=== PATIENT | male | born 1965 | race Caucasian/White ===

== ENCOUNTER 2017-07-22 11:06 | Emergency (ER) | payer SELFPAY ==
[2017-07-22 11:42] VITALS: RESP 18; TEMP 98.3; O2SAT 99
--- NOTE | 2017-07-22 12:52 | ED PDOC ---
Arrival/HPI - General Chief Complaint: ENT Problem Time Seen by Provider: 07/22/17 12:17 Historian: Patient - History of Present Illness Narrative History of Present Illness (Text): 07/22/17 12:17 Robert Hobson is a 52 year old male who presents to the emergency department complaining of 4 day duration of left ear pain. Patient notes decreased hearing in his left ear. Patient states that he has not taken any medication for pain but has applied a cream from [place] in ear without improvement. Patient denies any chest pain, shortness of breath, sick person contact, fevers, chills, or any other complaints at this time. Time/Duration: < week Symptom Onset: Gradual Symptom Course: Unchanged Context: Home Past Medical History - Provider Review Nursing Documentation Reviewed: Yes - Travel History If Yes, travel location?: [place] - Infectious Disease Hx of Infectious Diseases: None - Cardiac Hx Cardiac Disorders: Yes Hx Hypertension: Yes - Pulmonary Hx Respiratory Disorders: No - Neurological Hx Neurological Disorder: No - HEENT Hx HEENT Disorder: No - Renal Hx Renal Disorder: No - Endocrine/Metabolic Hx Endocrine Disorders: No - Hematological/Oncological Hx Blood Disorders: No - Integumentary Hx Dermatological Disorder: No - Musculoskeletal/Rheumatological Hx Musculoskeletal Disorders: No - Gastrointestinal Hx Gastrointestinal Disorders: No - Genitourinary/Gynecological Hx Genitourinary Disorders: No - Psychiatric Hx Psychophysiologic Disorder: No Hx Substance Use: No - Anesthesia Hx Anesthesia: No Hx Anesthesia Reactions: No Hx Malignant Hyperthermia: No Family/Social History - Physician Review Nursing Documentation Reviewed: Yes Family/Social History: No Known Family HX Smoking Status: Never Smoked Hx Alcohol Use: No Hx Substance Use: No Allergies/Home Meds Allergies/Adverse Reactions: Allergies No Known Allergies Allergy (Verified 07/22/17 12:01) Review of Systems - Physician Review All systems were reviewed & negative as marked: Yes - Review of Systems Constitutional: absent: Fevers, Night Sweats Eyes: absent: Vision Changes ENT: Hearing Changes (decreased hearing in left ear), Other (Left ear pain) Respiratory: absent: SOB, Cough Cardiovascular: absent: Chest Pain Gastrointestinal: absent: Abdominal Pain Genitourinary Male: absent: Dysuria, Frequency Musculoskeletal: absent: Arthralgias Skin: absent: Rash, Pruritis Neurological: absent: Headache Endocrine: absent: Diaphoresis Hemo/Lymphatic: absent: Adenopathy Physical Exam Vital Signs Reviewed: Yes Vital Signs Temp Pulse Resp BP Pulse Ox 07/22/17 12:38 79 18 155/89 H 99 07/22/17 11:41 98.3 F 84 18 158/91 H 99 07/22/17 11:39 98.0 F 92 H 18 175/98 H 98 Temperature: Afebrile Blood Pressure: Hypertensive Pulse: Regular Respiratory Rate: Normal Appearance: Positive for: Well-Appearing, Non-Toxic, Comfortable Pain Distress: None Mental Status: Positive for: Alert and Oriented X 3 - Systems Exam Head: Present: Atraumatic, Normocephalic Pupils: Present: PERRL Extroacular Muscles: Present: EOMI Ears: Present: Other (Significant left ear edema with erythema; no mastoid tenderness, erythema, or swelling; positive Pinna pull). No: Normal, NORMAL TM , Normal Canal, TM Bulging, TM Perf Mouth: Present: Other (poor dentitian) Pharnyx: Present: Normal. No: ERYTHEMA, EXUDATE Nose (External): Present: Atraumatic Nose (Internal): Present: Normal Inspection Neck: Present: Normal Range of Motion, Trachea Midline. No: Lymphadenopathy Respiratory/Chest: Present: Clear to Auscultation, Good Air Exchange. No: Respiratory Distress, Accessory Muscle Use Cardiovascular: Present: Regular Rate and Rhythm, Normal S1, S2. No: Murmurs Abdomen: No: Tenderness Neurological: Present: GCS=15, Speech Normal Skin: Present: Warm, Dry, Normal Color. No: Rashes Psychiatric: Present: Alert, Oriented x 3 Medical Decision Making ED Course and Treatment: 07/22/17 13:23 Patient is nontoxic well appearing in no distress. Vital signs are stable Patient with left ear pain 4 days Left canal edema and erythema. No mastoid tenderness erythema or swelling. Toradol given IM Tramadol mouth Amoxicillin by mouth Patient reassessment: Patient feeling better after medications. Vital signs stable. I advised follow-up with ENT specialist within the next 2 days I advised follow up with primary care physician within the next 2 days, advised to increase fluids take medications as prescribed and return if symptoms worsen persist or if new symptoms develop IMPRESSION; otitis media, otitis externa Motrin every 6 hours as needed for pain/fever reduction tramadol; 1 tablet every 6 hours as needed for moderate to severe pain; may cause drowsiness. Increase fluids amoxicilllin 3 times daily x10 days Floxin otic; 5 drops to affected ear twice daily Follow up primary care physician within the next 2 days Follow up with the ENT specialist within the next 2 days. Return if symptoms worsen persist or if the symptoms develop - Medication Orders Current Medication Orders: Discontinued Medications Amoxicillin (Amoxil 500 Mg Cap) 500 mg PO STAT STA PRN Reason: Protocol Stop: 07/22/17 12:19 Last Admin: 07/22/17 12:35 Dose: 500 mg Ketorolac Tromethamine (Toradol) 60 mg IM STAT STA Stop: 07/22/17 12:19 Last Admin: 07/22/17 12:35 Dose: 60 mg Tramadol HCl (Ultram) 50 mg PO STAT STA Stop: 07/22/17 12:19 Last Admin: 07/22/17 12:36 Dose: 50 mg - Scribe Statement The provider has reviewed the documentation as recorded by the Artur Macdonald Provider Scribe Attestation: All medical record entries made by the Artur were at my direction and personally dictated by me. I have reviewed the chart and agree that the record accurately reflects my personal performance of the history, physical exam, medical decision making, and the department course for this patient. I have also personally directed, reviewed, and agree with the discharge instructions and disposition. Disposition/Present on Arrival - Present on Arrival Any Indicators Present on Arrival: No History of DVT/PE: No History of Uncontrolled Diabetes: No Urinary Catheter: No History of Decub. Ulcer: No History Surgical Site Infection Following: None - Disposition Have Diagnosis and Disposition been Completed?: Yes Diagnosis: Otitis externa, Otitis media Disposition: HOME/ ROUTINE Disposition Time: 13:14 Patient Plan: Discharge Patient Problems: Current Active Problems Problem Status Onset Otitis externa Acute Otitis media Acute Condition: GOOD Discharge Instructions (ExitCare): Otitis Externa (ED), Otitis Media (ED) Additional Instructions: Motrin every 6 hours as needed for pain/fever reduction tramadol; 1 tablet every 6 hours as needed for moderate to severe pain; may cause drowsiness. Increase fluids amoxicilllin 3 times daily x10 days Floxin otic; 5 drops to affected ear twice daily Follow up primary care physician within the next 2 days Follow up with the ENT specialist within the next 2 days. Return if symptoms worsen persist or if the symptoms develop Prescriptions: Amoxicillin 500 mg PO TID #30 tab Ibuprofen [Motrin] 600 mg PO Q6H PRN #20 tab PRN Reason: pain/fever reduction Ofloxacin Otic 0.3% [Floxin 0.3% Otic Soln] 5 drop BID #1 bottle traMADol [Ultram] 50 mg PO Q6H PRN #6 tab PRN Reason: moderate to severe pain Referrals: Craig Stroud MD [Staff Provider] - Follow up with primary Frankie Garcia DO [Staff Provider] - Follow up with primary Forms: [employer] (Turkish), WORK NOTE
[2017-07-22 13:28] VITALS: BP 152/79; PULSE 75
== END 2017-07-22 12:30 | disposition home or self-care (01) ==
LOC: ED 11:06
DX: H60.92 Unspecified otitis externa, left ear (principal); H66.92 Otitis media, unspecified, left ear
CPT/HCPCS: 96372; 99283; J1885